=== PATIENT | female | born 1945 | race Caucasian/White ===

== ENCOUNTER 2017-05-26 20:34 | Emergency (ER) | payer OTHER ==
[~2017-05-26] VITALS: Ht 165.1 cm; Wt 86.7 kg
[2017-05-26 21:06] LABS: HEMATOCRIT 39.3 % (36.0-46.0); HEMOGLOBIN 13.2 G/DL (11.9-15.5); MCHC 33.6 G/DL (30.0-36.0); MCV 89.3 FL (83-99); PLATELET COUNT 179 K/uL (156-360); RBC DIS.WIDTH-CV 12.4 % (11.8-14.6); RBC DIS.WIDTH-SD 40.9 % (39-53); WHITE BLOOD COUNT 6.6 K/uL (4.1-10.2)
[2017-05-26 21:14] LABS: CHLORIDE 109 mEq/L (99-109); POTASSIUM 4.5 mEq/L (3.7-5.4); SODIUM 145 mEq/L (136-147)
[2017-05-26 21:16] LABS: GLUCOSE 92 mg/dL (70-99); TOTAL PROTEIN 6.4 g/dL (6.4-8.3)
[2017-05-26 21:18] LABS: TOTAL BILIRUBIN 0.5 mg/dL (0.0-1.0)
[2017-05-26 21:20] LABS: ALKALINE PHOSPHATASE 78 IU/L (3-129); GFR ESTIMATE (CALCULATED) 58 mL/min/
[2017-05-26 21:21] LABS: UREA NITROGEN (BUN) 18 mg/dL (9-23)
[2017-05-26 21:22] LABS: AST (GOT) 25 IU/L (2-34)
[2017-05-26 21:23] LABS: ALT (GPT) 20 IU/L (3-49)
[2017-05-26 21:54] LABS: APPEARANCE CLOUDY ((CLEAR)); BILIRUBIN NEGATIVE; BLOOD NEGATIVE; COLOR YELLOW ((YELLOW)); GLUCOSE (STRIP) NEGATIVE; KETONES NEGATIVE; LEUKOCYTES LARGE; NITRITE NEGATIVE; PROTEIN (STRIP) 30; SPECIFIC GRAVITY 1.028 (1.000-1.030); UROBILINOGEN 0.2 MG/DL (0.2-1.0)
[2017-05-26 22:18] LABS: BACTERIA 1+ /HPF; CALCIUM OXALATE CRYSTALS 1+ /HPF; EPITHELIAL CELLS 1+ /HPF; RED BLOOD CELLS 0-5 /HPF (0-5); UCUL ADDED? YES; WHITE BLOOD CELLS 20-30 /HPF (0-5)
[2017-05-26 22:19] LABS: MUCUS 3+ /LPF
[2017-05-26] MEDS ORDERED: KEFLEX500 MG PO (22:24)
[2017-05-26 23:21] VITALS: BP 151/47
== END 2017-05-26 23:23 | disposition home or self-care (01) ==
LOC: EME 20:34
DX: N39.0 Urinary tract infection, site not specified (principal); F02.80 Dementia in other diseases classified elsewhere, unspecified severity, without behavioral disturbance, psychotic disturbance, mood disturbance, and anxiety; G30.9 Alzheimer's disease, unspecified; Z96.651 Presence of right artificial knee joint; Z88.0 Allergy status to penicillin; Z88.3 Allergy status to other anti-infective agents
CPT/HCPCS: 80053; 81003; 85027; 87086 GA; 99281; 99285; J0696